=== PATIENT | male | born 1965 | race Two or more races ===

== ENCOUNTER 2019-03-31 09:36 | Emergency (ER) | payer OTHER ==
[~2019-03-31] VITALS: Ht 172.7 cm; Wt 87.1 kg
[2019-03-31 09:40] VITALS: BP 132/86
[2019-03-31] MEDS ORDERED: cefTRIAXone SOD 1,000 MG VL IM ONE (11:30)
[2019-03-31] MEDS ORDERED: KETOROLAC TROMETH 60MG/2ML VIAL IM ONE (11:30)
== END 2019-03-31 11:55 | disposition home or self-care (01) ==
LOC: ER 09:36
DX: N45.1 Epididymitis (principal); N43.3 Hydrocele, unspecified; N50.3 Cyst of epididymis; Z87.442 Personal history of urinary calculi
CPT/HCPCS: 76870; 96372; 99284; J0696; J1885

== ENCOUNTER 2019-11-27 04:12 | Emergency (ER) | payer OTHER ==
[~2019-11-27] VITALS: Ht 175.3 cm; Wt 88.5 kg
[2019-11-27 04:20] VITALS: BP 138/96
[2019-11-27] MEDS ORDERED: methylPREDNISolone SOD SUCC 125 MG/2 ML VL IV ONE (07:45)
[2019-11-27] MEDS ORDERED: CLINDAMYCIN 600MG IV 50 ML IV ONE (07:45)
[2019-11-27] MEDS ORDERED: KETOROLAC TROMETH 30 MG/ML 1ML VIAL IV ONE (07:45)
== END 2019-11-27 10:25 | disposition home or self-care (01) ==
LOC: ER 04:12
DX: K02.9 Dental caries, unspecified (principal); K04.7 Periapical abscess without sinus; F17.210 Nicotine dependence, cigarettes, uncomplicated
CPT/HCPCS: 70486; 96365; 96375; 99284; J1885; J2930; J3490